=== PATIENT | female | born 1990 | race Caucasian/White ===

== ENCOUNTER 2021-09-29 10:06 | Emergency (ER) | payer OTHER, SELFPAY ==
[2021-09-29 10:16] VITALS: BP 131/89; PULSE 95; RESP 20; TEMP 36.8; O2SAT 100
--- NOTE | 2021-09-29 10:26 | ED.URI ---
HPI - URI/Sore Throat General Chief Complaint: Upper Respiratory Infection Stated Complaint: Headache, congestion, fever Source: patient Mode of arrival: ambulatory Limitations: no limitations History of Present Illness HPI Narrative: 31-year-old female presented for complaint of sinus congestion, cough, and fatigue for about 3 days. She endorses nonproductive cough congestion is worse yesterday and today. Fever up to 100.5. Denies sob/wheezing, nausea, vomiting, decreased appetite. Vaccinated for covid. Denies sick contacts. MD elicited complaint: cough Related Data Home Medications Medication Instructions Recorded Confirmed levothyroxine 150 mcg PO DAILY 09/29/21 09/29/21 Allergies Allergy/AdvReac Type Severity Reaction Status Date / Time bupropion Allergy Unknown HIVES Verified 09/29/21 10:29 Review of Systems Review of Systems: CONSTITUTIONAL: Endorses malaise, chills, fever. EYES: Denies visual changes, redness, or discharge. ENT: Reports rhinorrhea, congestion, sinus pain; denies otalgia and sore throat. CARDIOVASCULAR: Denies chest pain, palpitations, or edema. RESPIRATORY: Reports cough, post nasal drainage. Denies dyspnea. GASTROINTESTINAL: Denies abdominal pain, nausea, vomiting, diarrhea SKIN: Denies rash or itching. MUSCULOSKELETAL: Endorses myalgia. NEUROLOGIC: Denies headache. [facility] Family History Family History Mother Family history of thyroid disease Father Family history of glaucoma Family history of elevated blood lipids Social History Social History Smoking status: Never smoker Alcohol intake: current Exam Narrative: GENERAL: Ill-appearing, nontoxic no acute distress. HEAD: Normocephalic EYES: PERRLA, conjunctivae clear ENT: Mucous membranes moist. TM pearly louis with dull light reflex bilaterally; no tragal tenderness. Oropharynx erythematous without lesions. Tonsils without exudate, no drooling, no hoarseness, no trismus, uvula midline. NECK: Supple. No lymphadenopathy CHEST: Clear to auscultation, breath sounds equal. No wheezing, rhonchi, rales, or stridor. No respiratory distress, speaks in full sentences. HEART: Regular rate and rhythm. No murmur heard. SKIN: Warm, dry, no rash. NEURO: Alert and oriented x3. PSYCH: Normal mood and affect Course Course Emergency Course: covid positive Patient is aware of diagnosis, understands and agrees to treatment plan. Anticipatory guidance given. Patient agrees to follow-up as directed and is aware of reasons to seek care at the emergency department. Portions of this record may have been created with voice recognition software Level of Care: Express Care Visit Vital Signs Vital signs: Vital Signs Temperature 98.2 F 09/29/21 10:16 Pulse Rate 95 09/29/21 10:16 Respiratory Rate 20 09/29/21 10:16 Blood Pressure 131/89 09/29/21 10:16 Pulse Oximetry 100 09/29/21 10:16 Temperature 98.2 F 09/29/21 10:16 Pulse Rate 95 09/29/21 10:16 Respiratory Rate 20 09/29/21 10:16 Blood Pressure 131/89 09/29/21 10:16 Pulse Oximetry 100 09/29/21 10:16 reviewed MDM - URI/Sore Throat Differential Diagnosis Differential diagnosis: Likely upper respiratory infection, viral infection and influenza Discharge Plan Discharge Clinical Impression: COVID-19 Patient Disposition: Home, Self-Care Condition: Stable Instructions: Antibiotic Form Additional Instructions: Your rapid COVID test was positive today. The following recommendations have been made by the CDC and local Health Departments, regarding COVID-19: -Those individuals with mild cases of COVID-19 can generally be discontinued from isolation 5 days AFTER the onset of symptoms AND the resolution of fever for 24hrs (without the use of fever-reducing medications)* Rest, stay hydrated. Tylenol, Flonase/nasal spray, Zyrtec, cough syrup c
== END 2021-09-29 10:41 | disposition home or self-care (01) ==
PROVIDERS: Emergency Provider Nurse Practitioner Family; PCP Registered Nurse
DX: U07.1 COVID-19 (principal)
CPT/HCPCS: 87426; 99203; C9803; G0463

== ENCOUNTER → 2023-08-11 14:32 | Outpatient (CLI) | payer OTHER, SELFPAY ==
--- NOTE | ~2023-08-11 | MR_ITS ---
EXAMINATION: MR lumbar spine wo con DATE: 08/11/2023 15:21 INDICATION: Low back pain. Myelopathy. TECHNIQUE: Magnetic resonance imaging (MRI) of the lumbar spine was performed without intravenous con trast. Sequences included sagittal T2-weighted FSE, sagittal T2-weighted FS FSE, sagittal T1-weighted FSE, and axial T2-weighted FSE. COMPARISON: None FINDINGS: There is 5 degrees levocurvature of thoracolumbar spine. There is mild chronic anterior wed ging of T12 vertebral body. There is mildly decreased disc height at L3-L4 and L4-L5. The distal spin al cord signal intensity is normal. The conus medullaris is at T12-L1. The following disc levels are specifically discussed: L1-L2: The disc does not extend beyond the endplate margin. There is mild bilateral facet joint osteo arthritis. There is no neural foraminal stenosis. There is no central canal stenosis. L2-L3: The disc does not extend beyond the endplate margin. There is mild bilateral facet joint osteo arthritis. There is no neural foraminal stenosis. There is no central canal stenosis. L3-L4: The disc is bulging and has an annular fissure. There is moderate bilateral facet joint osteoa rthritis. There is mild right and moderate left neural foraminal stenosis. There is mild central joselyn l stenosis. L4-L5: The disc is bulging and has an annular fissure. There is moderate bilateral facet joint osteoa rthritis. There is mild right and moderate left neural foraminal stenosis. There is mild central joselyn l stenosis. L5-S1: The disc does not extend beyond the endplate margin. There is mild bilateral facet joint osteo arthritis. There is no neural foraminal stenosis. There is no central canal stenosis. IMPRESSION: 1. Moderate left neural foraminal stenosis at L3-L4 and L4-L5. Otherwise mild lumbar spondylosis. Reviewed, dictated and finalized at location A. [facility] TECH IMPRESSION: 1. Moderate left neural foraminal stenosis at L3-L4 and L4-L5. Otherwise mild l umbar spondylosis.
--- NOTE | ~2023-08-11 | MR_ITS ---
MRI of the cervical spine Clinical History: Myelopathy, back pain Technique: Axial T2-weighted and gradient images, and sagittal T1-weighted, T2-weighted, and STIR bev ges were acquired. Findings: There is no fracture or subluxation of the cervical spine. Vertebral bodies maintain normal height and alignment. No suspicious bone marrow signal abnormality seen. No disc bulge or herniation seen at any cervical level. No spinal canal stenosis or cord compression identified in the cervical spine. There are mild facet joint degenerative changes, probable minimal r ight neural foraminal narrowing at C4-C5 and C5-C6. No abnormal signal seen in the spinal cord. Paravertebral soft tissues are unremarkable. Impression: Mild right neural foraminal narrowing at C4-C5 and C5-C6. Reviewed, dictated and finalized at [facility]. C[facility] RN Impression: Mild right neural foraminal narrowing at C4-C5 and C5-C6.
== END ==
DX: G95.9 Disease of spinal cord, unspecified (principal); M48.02 Spinal stenosis, cervical region; M48.061 Spinal stenosis, lumbar region without neurogenic claudication; M43.06 Spondylolysis, lumbar region
CPT/HCPCS: 72141; 72148